=== PATIENT | male | born 1930 | race Caucasian/White ===

== ENCOUNTER 2017-07-05 06:13 | Inpatient (IN) ==
[2017-07-05] MEDS ORDERED: SODIUM CHLORIDE 0.9% 1,000 ML IV STA ×2 (06:35→09:44)
[2017-07-05] MEDS ORDERED: PANTOPRAZOLE 40 MG VIAL IV STA (06:35)
[2017-07-05] MEDS ORDERED: ONDANSETRON 4 MG/2 ML VIAL IV STA (06:35)
[2017-07-05] MEDS ORDERED: SODIUM CHLORIDE 0.9% 500 ML IV STA (06:35)
[2017-07-05] MEDS ORDERED: ONDANSETRON 4 MG/2 ML VIAL ONE (07:06)
[2017-07-05] MEDS ORDERED: PANTOPRAZOLE 40 MG VIAL IV ONE ×2 (07:07→07:20)
[2017-07-05 07:18] LABS: Apearance,Urine CLOUDY (Clear); Basophils % 0.2 % (0.0-0.8); Bilirubin,Urine Negative (Negative); Blood, Urine Small mg/dL (Negative); Glucose,Urine (UA) Negative (Negative); Hematocrit 36.6 VOL% (42.0-52.0); Immature Granulocytes % 0.5 %; Immature Granulocytes Absolute 0.12 #; Ketones,Urine Negative (Negative); Lymphocytes # 0.4 10*3/uL (1.4-4.0); Lymphocytes % 1.7 % (21.2-54.2); Mean Corpuscular HGB Conc 30.1 GM/DL (32-36); Mean Corpuscular Hemoglobin 24 PG (27-34); Mean Corpuscular Volume 81.3 FL (87-102); Monocytes # 1.9 10*3/uL (0.11-0.8); Monocytes % 8.6 % (1.7-12.7); Nitrite,Urine Positive (Negative); Platelet Count 352 T/CUMM (130-400); Protein,Urine 30 MG/DL; RBC,Urine 14 /HPF (0-4); Red Cell Distribution Width 17.1 % (9.3-17.3); Squamous Epithelial Cell,Urine Occasional /HPF (0-10); Urine Color Yellow (Yellow); Urine Specific Gravity 1.017 (1.001-1.035); Urine Urobilinogen < 2.0 EU/DL (0.2-1.0); WBC,Urine 658 /HPF (0-6); White Blood Count 22.5 T/CUMM (4-12)
[2017-07-05 07:28] LABS: Albumin 3.3 G/DL (3.4-5.0); Bilirubin,Total 0.6 MG/DL (0.2-1.0); Calcium 8.7 MG/DL (8.5-10.1); Osmolality,Calculated 280.8 MOS/KG (273-304); Potassium 3.8 MMOL/L (3.5-5.1); Total Protein 7.6 G/DL (6.4-8.3)
[2017-07-05 07:43] LABS: Giant Platelets Few; Hypochromasia 1+; Lymphocytes 2 % (20-55); Ovalocytes Slight; Platelet Estimate Adequate; Segmented Neutrophils 91 % (50-85); Total Cells Counted 100
[2017-07-05 10:04] LABS: Risk Ratio 1.98; VLDL CHOLESTEROL 10.8 MG/DL
[2017-07-05] MEDS ORDERED: SODIUM CHLORIDE 0.9% 2,450 ML IV ONE ×2 (13:05→13:07)
[2017-07-05 13:52] LABS: ABG HCO3 25.2 MMOL/L (20-26); ABG PCO2 40.8 MM HG (35-48); ABG PH 7.408 (7.35-7.45); ABG PO2 63.6 MM HG (80-95); ABG TCO2 23.5 MMOL/L (23-27)
[2017-07-05 14:08] LABS: Bilirubin,Direct 0.2 MG/DL (0.0-0.20); Bilirubin,Total 0.5 MG/DL (0.2-1.0)
[2017-07-05] MEDS ORDERED: LEVOFLOXACIN INJ 100 ML IV ONE (14:17)
[2017-07-05] MEDS: SODIUM CHLORIDE 0.9% 1,000 ML IV SCH (14:32)
[2017-07-05] MEDS: LEVOFLOXACIN INJ 500 MG in PREMIX 1 EACH IV SCH (14:35)
[2017-07-05] MEDS: ACETAMINOPHEN 650 MG SUPP RECTAL PRN (15:42)
[2017-07-05] MEDS: PANTOPRAZOLE INJ 200 MG in SODIUM CHLORIDE 0.9% 250 ML IV SCH (20:46)
[2017-07-06] MEDS: SODIUM CHLORIDE 0.9% 1,000 ML IV SCH ×2 (01:15→11:31)
[2017-07-06 06:24] LABS: Basophils # 0.1 10*3/uL (0.0-0.2); Basophils % 0.2 % (0.0-0.8); Hematocrit 29.8 VOL% (42.0-52.0); Hemoglobin 8.7 GM/DL (14.0-18.0); Immature Granulocytes % 0.7 %; Immature Granulocytes Absolute 0.15 #; Lymphocytes # 0.6 10*3/uL (1.4-4.0); Lymphocytes % 2.8 % (21.2-54.2); Mean Corpuscular HGB Conc 29.2 GM/DL (32-36); Mean Corpuscular Hemoglobin 24 PG (27-34); Mean Platelet Volume 10.5 FL (9.6-12.0); Monocytes # 2.2 10*3/uL (0.11-0.8); Monocytes % 10.4 % (1.7-12.7); Neutrophils # 18.5 10*3/uL (1.4-7.4); Neutrophils % 85.9 % (38.7-73.9); Platelet Count 286 T/CUMM (130-400); Red Blood Count 3.59 MC/CUMM (3.8-5.5); Red Cell Distribution Width 17.1 % (9.3-17.3); White Blood Count 21.5 T/CUMM (4-12)
[2017-07-06 06:48] LABS: Band Neutrophils 2 % (0-10); Lymphocytes 2 % (20-55); Macrocytosis 1+; Platelet Estimate Adequate; Polychromasia Slight; Segmented Neutrophils 86 % (50-85); Spherocytes Few; Total Cells Counted 100
[2017-07-06 06:54] LABS: Albumin 2.6 G/DL (3.4-5.0); Bilirubin,Direct 0.26 MG/DL (0.0-0.20); Bilirubin,Indirect 0.4 MG/DL (0.0-1.0); Bilirubin,Total 0.7 MG/DL (0.2-1.0); Total Protein 5.6 G/DL (6.4-8.3)
[2017-07-06 07:02] LABS: Albumin 2.6 G/DL (3.4-5.0); Bilirubin,Total 0.7 MG/DL (0.2-1.0); Calcium 8.2 MG/DL (8.5-10.1); Osmolality,Calculated 282.3 MOS/KG (273-304); Total Protein 5.6 G/DL (6.4-8.3)
[2017-07-06] MEDS ORDERED: ALBUTEROL/IPRATROPIUM 3 ML NEB RESP TX PRN (10:58)
[2017-07-06] MEDS: methylPREDNISolone SOD SUC 40 MG/1 ML VIAL IV SCH ×2 (11:26→22:12)
[2017-07-06] MEDS: ACETAMINOPHEN 650 MG SUPP RECTAL PRN (12:17)
[2017-07-06] MEDS: LEVOFLOXACIN INJ 500 MG in PREMIX 1 EACH IV SCH (13:19)
[2017-07-06] MEDS: PANTOPRAZOLE INJ 200 MG in SODIUM CHLORIDE 0.9% 250 ML IV SCH (21:08)
[2017-07-07] MEDS: SODIUM CHLORIDE 0.9% 1,000 ML IV SCH ×2 (01:16→11:44)
[2017-07-07] MEDS ORDERED: FUROSEMIDE 40 MG/4 ML VIAL IV ONE (08:28)
[2017-07-07 09:02] LABS: Basophils % 0.1 % (0.0-0.8); Hematocrit 30.5 VOL% (42.0-52.0); Hemoglobin 8.9 GM/DL (14.0-18.0); Immature Granulocytes % 0.8 %; Immature Granulocytes Absolute 0.11 #; Lymphocytes # 0.3 10*3/uL (1.4-4.0); Lymphocytes % 2.4 % (21.2-54.2); Mean Corpuscular HGB Conc 29.2 GM/DL (32-36); Mean Corpuscular Hemoglobin 24 PG (27-34); Mean Corpuscular Volume 81.3 FL (87-102); Monocytes # 0.6 10*3/uL (0.11-0.8); Monocytes % 4.4 % (1.7-12.7); Neutrophils # 12.5 10*3/uL (1.4-7.4); Neutrophils % 92.3 % (38.7-73.9); Platelet Count 327 T/CUMM (130-400); Red Blood Count 3.75 MC/CUMM (3.8-5.5); Red Cell Distribution Width 16.8 % (9.3-17.3); White Blood Count 13.5 T/CUMM (4-12)
[2017-07-07 09:22] LABS: Alanine Aminotransferase 51 U/L (16-61); Albumin 2.5 G/DL (3.4-5.0); Alkaline Phosphatase 60 U/L (45-117); Aspartate Amino Transferase 29 U/L (0-37); Bilirubin,Total < 0.39 MG/DL (0.2-1.0); Blood Urea Nitrogen 27 MG/DL (7-18); Calcium 8.9 MG/DL (8.5-10.1); Glucose 128 MG/DL (74-106); Osmolality,Calculated 289.1 MOS/KG (273-304); Potassium 4.2 MMOL/L (3.5-5.1); Sodium 142 MMOL/L (136-145); Total Protein 5.8 G/DL (6.4-8.3)
[2017-07-07 09:24] LABS: Band Neutrophils 1 % (0-10); Hypochromasia 1+; Lymphocytes 4 % (20-55); Segmented Neutrophils 91 % (50-85); Total Cells Counted 100
[2017-07-07 09:25] LABS: Burr Cells Slight; Microcytosis 1+; Ovalocytes Few; Platelet Estimate Normal
[2017-07-07] MEDS: methylPREDNISolone SOD SUC 40 MG/1 ML VIAL IV SCH ×2 (11:41→22:45)
[2017-07-07] MEDS: LEVOFLOXACIN INJ 500 MG in PREMIX 1 EACH IV SCH (13:50)
[2017-07-08 05:49] LABS: Basophils % 0.1 % (0.0-0.8); Hematocrit 29.5 VOL% (42.0-52.0); Hemoglobin 8.9 GM/DL (14.0-18.0); Immature Granulocytes % 1.8 %; Immature Granulocytes Absolute 0.25 #; Lymphocytes # 0.4 10*3/uL (1.4-4.0); Lymphocytes % 2.6 % (21.2-54.2); Mean Corpuscular HGB Conc 30.2 GM/DL (32-36); Mean Corpuscular Hemoglobin 24 PG (27-34); Mean Corpuscular Volume 79.9 FL (87-102); Monocytes # 0.5 10*3/uL (0.11-0.8); Monocytes % 3.7 % (1.7-12.7); Neutrophils # 12.6 10*3/uL (1.4-7.4); Neutrophils % 91.8 % (38.7-73.9); Platelet Count 348 T/CUMM (130-400); Red Blood Count 3.69 MC/CUMM (3.8-5.5); Red Cell Distribution Width 16.9 % (9.3-17.3); White Blood Count 13.7 T/CUMM (4-12)
[2017-07-08 06:18] LABS: Calcium 8.3 MG/DL (8.5-10.1); Osmolality,Calculated 289.3 MOS/KG (273-304); Potassium 4.2 MMOL/L (3.5-5.1)
[2017-07-08 06:29] LABS: Lymphocytes 1 % (20-55); Segmented Neutrophils 97 % (50-85); Total Cells Counted 100
[2017-07-08 06:30] LABS: Burr Cells Slight; Elliptocytes Few; Hypochromasia 1+; Microcytosis 1+; Platelet Estimate Normal
[2017-07-08] MEDS: PANTOPRAZOLE 40 MG VIAL IV SCH (12:18)
[2017-07-08] MEDS: methylPREDNISolone SOD SUC 40 MG/1 ML VIAL IV SCH ×2 (12:20→23:38)
[2017-07-08] MEDS: LEVOFLOXACIN INJ 500 MG in PREMIX 1 EACH IV SCH (13:50)
[2017-07-09 05:25] LABS: Basophils % 0.1 % (0.0-0.8); Hematocrit 32.3 VOL% (42.0-52.0); Immature Granulocytes % 1.2 %; Immature Granulocytes Absolute 0.17 #; Lymphocytes # 0.4 10*3/uL (1.4-4.0); Lymphocytes % 2.6 % (21.2-54.2); Mean Corpuscular Hemoglobin 24 PG (27-34); Mean Corpuscular Volume 77.8 FL (87-102); Mean Platelet Volume 11.2 FL (9.6-12.0); Monocytes # 0.5 10*3/uL (0.11-0.8); Monocytes % 3.6 % (1.7-12.7); Neutrophils % 92.5 % (38.7-73.9); Platelet Count 421 T/CUMM (130-400); Red Blood Count 4.15 MC/CUMM (3.8-5.5); Red Cell Distribution Width 16.9 % (9.3-17.3)
[2017-07-09 05:57] LABS: Albumin 2.7 G/DL (3.4-5.0); Bilirubin,Total 0.5 MG/DL (0.2-1.0); Calcium 8.8 MG/DL (8.5-10.1); Osmolality,Calculated 282.7 MOS/KG (273-304); Potassium 4.4 MMOL/L (3.5-5.1); Total Protein 5.9 G/DL (6.4-8.3)
[2017-07-09 05:59] LABS: Band Neutrophils 1 % (0-10); Giant Platelets Few; Hypochromasia 1+; Lymphocytes 1 % (20-55); Microcytosis Slight; Nucleated Red Blood Cells 1 (0-5); Platelet Estimate Adequate; Segmented Neutrophils 94 % (50-85); Total Cells Counted 100
[2017-07-09] MEDS: LEVOFLOXACIN INJ 500 MG in PREMIX 1 EACH IV SCH (09:08)
[2017-07-09] MEDS: PANTOPRAZOLE 40 MG VIAL IV SCH (09:22)
[2017-07-09] MEDS: methylPREDNISolone SOD SUC 40 MG/1 ML VIAL IV SCH ×2 (09:25→21:58)
[2017-07-09] MEDS ORDERED: SODIUM PHOSPHATE INJ 15 MMOL in SODIUM CHLORIDE 0.9% 250 ML IV ONE (10:00)
[2017-07-10 05:59] LABS: Basophils % 0.2 % (0.0-0.8); Hematocrit 32.1 VOL% (42.0-52.0); Hemoglobin 9.9 GM/DL (14.0-18.0); Immature Granulocytes % 4.1 %; Immature Granulocytes Absolute 0.55 #; Lymphocytes # 0.7 10*3/uL (1.4-4.0); Lymphocytes % 5.2 % (21.2-54.2); Mean Corpuscular HGB Conc 30.8 GM/DL (32-36); Mean Corpuscular Hemoglobin 24 PG (27-34); Mean Corpuscular Volume 77.5 FL (87-102); Mean Platelet Volume 10.7 FL (9.6-12.0); Monocytes % 7.4 % (1.7-12.7); Neutrophils % 83.1 % (38.7-73.9); Platelet Count 413 T/CUMM (130-400); Red Blood Count 4.14 MC/CUMM (3.8-5.5); Red Cell Distribution Width 16.8 % (9.3-17.3); White Blood Count 13.3 T/CUMM (4-12)
[2017-07-10 06:19] LABS: Hypochromasia 2+; Lymphocytes 4 % (20-55); Platelet Estimate Increased; Polychromasia Slight; Segmented Neutrophils 94 % (50-85); Total Cells Counted 100
[2017-07-10 06:34] LABS: Albumin 2.5 G/DL (3.4-5.0); Bilirubin,Total 0.9 MG/DL (0.2-1.0); Calcium 8.6 MG/DL (8.5-10.1); Osmolality,Calculated 284.4 MOS/KG (273-304); Potassium 4.6 MMOL/L (3.5-5.1); Total Protein 5.5 G/DL (6.4-8.3)
[2017-07-10] MEDS: LEVOFLOXACIN INJ 500 MG in PREMIX 1 EACH IV SCH (09:28)
[2017-07-10] MEDS: PANTOPRAZOLE 40 MG VIAL IV SCH (10:39)
[2017-07-10] MEDS: methylPREDNISolone SOD SUC 40 MG/1 ML VIAL IV SCH ×2 (10:39→20:55)
[2017-07-11 06:29] LABS: Basophils # 0.1 10*3/uL (0.0-0.2); Basophils % 0.3 % (0.0-0.8); Hematocrit 33.5 VOL% (42.0-52.0); Hemoglobin 10.2 GM/DL (14.0-18.0); Immature Granulocytes Absolute 0.83 #; Lymphocytes # 0.8 10*3/uL (1.4-4.0); Mean Corpuscular HGB Conc 30.4 GM/DL (32-36); Mean Corpuscular Hemoglobin 24 PG (27-34); Mean Corpuscular Volume 79.2 FL (87-102); Mean Platelet Volume 10.4 FL (9.6-12.0); Neutrophils % 83.7 % (38.7-73.9); Platelet Count 467 T/CUMM (130-400); Red Blood Count 4.23 MC/CUMM (3.8-5.5); White Blood Count 16.7 T/CUMM (4-12)
[2017-07-11 06:52] LABS: Band Neutrophils 1 % (0-10); Burr Cells Slight; Giant Platelets Few; Hypochromasia 1+; Lymphocytes 7 % (20-55); Microcytosis Slight; Ovalocytes Slight; Platelet Estimate Adequate; Segmented Neutrophils 85 % (50-85); Total Cells Counted 100
[2017-07-11 07:04] LABS: Calcium 8.6 MG/DL (8.5-10.1); Osmolality,Calculated 287.3 MOS/KG (273-304); Potassium 4.7 MMOL/L (3.5-5.1)
[2017-07-11] MEDS: methylPREDNISolone SOD SUC 40 MG/1 ML VIAL IV SCH (09:24)
[2017-07-11] MEDS: PANTOPRAZOLE 40 MG VIAL IV SCH (09:24)
[2017-07-11] MEDS: LEVOFLOXACIN INJ 500 MG in PREMIX 1 EACH IV SCH (09:25)
[2017-07-12 05:19] LABS: Basophils # 0.1 10*3/uL (0.0-0.2); Basophils % 0.4 % (0.0-0.8); Eosinophils # 0.1 10*3/uL (0.0-0.87); Eosinophils % 0.4 % (0.00-10.9); Hematocrit 31.5 VOL% (42.0-52.0); Hemoglobin 9.7 GM/DL (14.0-18.0); Immature Granulocytes Absolute 1.11 #; Lymphocytes # 1.5 10*3/uL (1.4-4.0); Lymphocytes % 8.2 % (21.2-54.2); Mean Corpuscular HGB Conc 30.8 GM/DL (32-36); Mean Corpuscular Hemoglobin 24 PG (27-34); Mean Corpuscular Volume 78.2 FL (87-102); Mean Platelet Volume 10.3 FL (9.6-12.0); Monocytes # 1.4 10*3/uL (0.11-0.8); Monocytes % 7.6 % (1.7-12.7); NRBC # 0.02 10*3/uL; Neutrophils # 14.4 10*3/uL (1.4-7.4); Neutrophils % 77.4 % (38.7-73.9); Platelet Count 467 T/CUMM (130-400); Red Blood Count 4.03 MC/CUMM (3.8-5.5); Red Cell Distribution Width 16.9 % (9.3-17.3); White Blood Count 18.6 T/CUMM (4-12)
[2017-07-12 05:51] LABS: Eosinophils 3 % (0-10); Hypochromasia 1+; Lymphocytes 9 % (20-55); Metamyelocytes 1 %; Microcytosis 1+; Segmented Neutrophils 80 % (50-85); Total Cells Counted 100
[2017-07-12 05:52] LABS: Ovalocytes Slight; Platelet Estimate Increased
[2017-07-12 05:56] LABS: Albumin 2.5 G/DL (3.4-5.0); Bilirubin,Total 0.7 MG/DL (0.2-1.0); Calcium 8.3 MG/DL (8.5-10.1); Osmolality,Calculated 279.7 MOS/KG (273-304); Potassium 4.1 MMOL/L (3.5-5.1); Total Protein 5.2 G/DL (6.4-8.3)
[2017-07-12] MEDS ORDERED: PANTOPRAZOLE 40 MG TABLET PO SCH (09:00)
[2017-07-12] MEDS ORDERED: predniSONE 20 MG TABLET PO SCH (09:00)
[2017-07-12 11:41] VITALS: BP 104/52
== END 2017-07-12 14:49 | DRG 871 ==
LOC: EDBD → EDUNIT# → N.ED 06:13 → SUATTDRO 12:34 → N.EDINP 12:34 → N.2E 15:20
PROVIDERS: ADMIT Internal Medicine; ATTEND Internal Medicine

== ENCOUNTER 2018-06-27 08:39 | Inpatient (IN) ==
[2018-06-27 09:36] LABS: Basophils # 0.1 10*3/uL (0.0-0.2); Basophils % 0.8 % (0.0-0.8); Eosinophils # 0.6 10*3/uL (0.0-0.87); Hematocrit 35.4 VOL% (42.0-52.0); Hemoglobin 10.8 GM/DL (14.0-18.0); Immature Granulocytes % 0.8 %; Lymphocytes # 0.9 10*3/uL (1.4-4.0); Lymphocytes % 7.4 % (21.2-54.2); Mean Corpuscular HGB Conc 30.5 GM/DL (32-36); Mean Corpuscular Hemoglobin 28 PG (27-34); Mean Corpuscular Volume 90.5 FL (87-102); Mean Platelet Volume 10.2 FL (9.6-12.0); Monocytes # 1.3 10*3/uL (0.11-0.8); Monocytes % 11.2 % (1.7-12.7); Neutrophils # 8.9 10*3/uL (1.4-7.4); Neutrophils % 74.8 % (38.7-73.9); Platelet Count 290 T/CUMM (130-400); Red Blood Count 3.91 MC/CUMM (3.8-5.5); Red Cell Distribution Width 17.6 % (9.3-17.3); White Blood Count 11.9 T/CUMM (4-12)
[2018-06-27 09:57] LABS: Calcium 8.7 MG/DL (8.5-10.1); Osmolality,Calculated 279.5 MOS/KG (273-304); Potassium 4.6 MMOL/L (3.5-5.1)
[2018-06-27 10:04] LABS: Apearance,Urine Turbid (Clear); Glucose,Urine (UA) Negative (Negative); Ketones,Urine Negative (Negative); Protein,Urine 3+ MG/DL; Urine Color Red (Yellow); Urine Specific Gravity 1.015 (1.001-1.035)
[2018-06-27 10:05] LABS: Bilirubin,Urine Negative (Negative); Blood, Urine Large mg/dL (Negative); Nitrite,Urine Negative (Negative); RBC,Urine TNTC /HPF (0-4); Urine Urobilinogen < 2.0 EU/DL (0.2-1.0)
[2018-06-27 10:14] LABS: WBC,Urine Rare /HPF (0-6)
[2018-06-27 10:15] LABS: Bacteria,Urine Few /HPF (Few)
[2018-06-27] MEDS ORDERED: LEVOFLOXACIN INJ 500 MG in PREMIX 1 EACH IV STA (10:16)
[2018-06-27] MEDS ORDERED: DOCUSATE SODIUM 100 MG CAPSULE PO PRN (11:08)
[2018-06-27] MEDS ORDERED: ONDANSETRON 4 MG/2 ML VIAL IV PRN (11:08)
[2018-06-27] MEDS: ALBUTEROL 0.63 MG/3 ML NEB RESP TX PRN (12:02)
[2018-06-27] MEDS: DEXTROSE 5% NACL 0.45% 1,000 ML IV SCH (14:43)
[2018-06-27 16:25] LABS: Hematocrit 34.5 VOL% (42.0-52.0); Hemoglobin 10.5 GM/DL (14.0-18.0)
[2018-06-27] MEDS: FLUTICASONE 50 MCG NASAL SPRAY 16 GM BOTTLE BOTH NARES SCH (18:52)
[2018-06-27] MEDS ORDERED: SPIRONOLACTONE 25 MG TABLET PO SCH (21:00)
[2018-06-27] MEDS: SPIRONOLACTONE 25 MG TABLET PO SCH (22:16)
[2018-06-27] MEDS: DOCUSATE SODIUM 100 MG CAPSULE PO SCH (22:16)
[2018-06-27] MEDS: ATORVASTATIN 40 MG TABLET PO SCH (22:16)
[2018-06-27 22:26] LABS: Hematocrit 33.7 VOL% (42.0-52.0); Hemoglobin 10.3 GM/DL (14.0-18.0)
[2018-06-28] MEDS: DEXTROSE 5% NACL 0.45% 1,000 ML IV SCH ×2 (04:17→18:38)
[2018-06-28 06:37] LABS: Hematocrit 33.8 VOL% (42.0-52.0); Hemoglobin 10.2 GM/DL (14.0-18.0)
[2018-06-28 06:38] LABS: Basophils # 0.1 10*3/uL (0.0-0.2); Basophils % 0.7 % (0.0-0.8); Eosinophils # 0.5 10*3/uL (0.0-0.87); Eosinophils % 4.9 % (0.00-10.9); Hematocrit 34.4 VOL% (42.0-52.0); Hemoglobin 10.4 GM/DL (14.0-18.0); Lymphocytes # 0.8 10*3/uL (1.4-4.0); Lymphocytes % 7.9 % (21.2-54.2); Mean Corpuscular HGB Conc 30.2 GM/DL (32-36); Mean Corpuscular Hemoglobin 28 PG (27-34); Mean Corpuscular Volume 91.5 FL (87-102); Mean Platelet Volume 10.6 FL (9.6-12.0); Monocytes # 1.2 10*3/uL (0.11-0.8); Monocytes % 12.6 % (1.7-12.7); Neutrophils # 7.1 10*3/uL (1.4-7.4); Neutrophils % 72.9 % (38.7-73.9); Platelet Count 279 T/CUMM (130-400); Red Blood Count 3.76 MC/CUMM (3.8-5.5); Red Cell Distribution Width 17.3 % (9.3-17.3); White Blood Count 9.8 T/CUMM (4-12)
[2018-06-28 06:58] LABS: Calcium 8.6 MG/DL (8.5-10.1); Potassium 4.3 MMOL/L (3.5-5.1); Risk Ratio 2.66; VLDL CHOLESTEROL 25.8 MG/DL
[2018-06-28] MEDS: FLUTICASONE 50 MCG NASAL SPRAY 16 GM BOTTLE BOTH NARES SCH (08:59)
[2018-06-28] MEDS ORDERED: NON-FORMULARY MEDICATION (Omeprazole [Omeprazole] 20 MG) PO SCH (09:00)
[2018-06-28] MEDS ORDERED: NON-FORMULARY MEDICATION (Bumetanide [Bumetanide] 0.5 MG) PO SCH (09:00)
[2018-06-28] MEDS: CYANOCOBALAMIN 500 MCG TABLET PO SCH (09:03)
[2018-06-28] MEDS: PANTOPRAZOLE 40 MG TABLET PO SCH (09:03)
[2018-06-28] MEDS: FUROSEMIDE 20 MG TABLET PO SCH (09:03)
[2018-06-28] MEDS: FENOFIBRATE 160 MG TABLET PO SCH (09:03)
[2018-06-28] MEDS: ESCITALOPRAM 10 MG TABLET PO SCH (09:03)
[2018-06-28] MEDS: DOCUSATE SODIUM 100 MG CAPSULE PO SCH ×2 (09:03→20:40)
[2018-06-28] MEDS: DUTASTERIDE 0.5 MG CAPSULE PO SCH (09:03)
[2018-06-28] MEDS: POTASSIUM CHLORIDE 20 MEQ TABLET PO SCH (09:03)
[2018-06-28] MEDS: MEMANTINE 10 MG TABLET PO SCH (09:03)
[2018-06-28] MEDS: LORATADINE 10 MG TABLET PO PRN (09:04)
[2018-06-28] MEDS: MULTIVITAMIN (CENTRUM) TABLET PO SCH (09:04)
[2018-06-28] MEDS: SPIRONOLACTONE 25 MG TABLET PO SCH ×2 (09:04→20:40)
[2018-06-28] MEDS: LEVOFLOXACIN INJ 500 MG in PREMIX 1 EACH IV SCH (11:35)
[2018-06-28 14:16] LABS: Hematocrit 33.4 VOL% (42.0-52.0); Hemoglobin 9.9 GM/DL (14.0-18.0)
[2018-06-28] MEDS: ATORVASTATIN 40 MG TABLET PO SCH (20:40)
[2018-06-28 22:03] LABS: Hematocrit 32.9 VOL% (42.0-52.0); Hemoglobin 10.1 GM/DL (14.0-18.0)
[2018-06-29] MEDS: DEXTROSE 5% NACL 0.45% 1,000 ML IV SCH (08:12)
[2018-06-29] MEDS: CYANOCOBALAMIN 500 MCG TABLET PO SCH (09:22)
[2018-06-29] MEDS: DUTASTERIDE 0.5 MG CAPSULE PO SCH (09:22)
[2018-06-29] MEDS: FENOFIBRATE 160 MG TABLET PO SCH (09:22)
[2018-06-29] MEDS: SPIRONOLACTONE 25 MG TABLET PO SCH ×2 (09:23→20:57)
[2018-06-29] MEDS: DOCUSATE SODIUM 100 MG CAPSULE PO SCH ×2 (09:23→20:57)
[2018-06-29] MEDS: POTASSIUM CHLORIDE 20 MEQ TABLET PO SCH (09:23)
[2018-06-29] MEDS: FUROSEMIDE 20 MG TABLET PO SCH (09:23)
[2018-06-29] MEDS: PANTOPRAZOLE 40 MG TABLET PO SCH (09:23)
[2018-06-29] MEDS: ESCITALOPRAM 10 MG TABLET PO SCH (09:23)
[2018-06-29] MEDS: MEMANTINE 10 MG TABLET PO SCH (09:23)
[2018-06-29] MEDS: MULTIVITAMIN (CENTRUM) TABLET PO SCH (09:23)
[2018-06-29] MEDS: FLUTICASONE 50 MCG NASAL SPRAY 16 GM BOTTLE BOTH NARES SCH (09:24)
[2018-06-29] MEDS: LEVOFLOXACIN INJ 500 MG in PREMIX 1 EACH IV SCH (10:49)
[2018-06-29] MEDS ORDERED: VANCOMYCIN INJ 1,250 MG in SODIUM CHLORIDE 0.9% 250 ML IV SCH (16:00)
[2018-06-29] MEDS: cefTRIAXone 1,000 MG in SYRINGE 1 EACH IV SCH (20:57)
[2018-06-29] MEDS: ATORVASTATIN 40 MG TABLET PO SCH (20:57)
[2018-06-30] MEDS: DEXTROSE 5% NACL 0.45% 1,000 ML IV SCH (00:31)
[2018-06-30 04:58] LABS: Basophils # 0.1 10*3/uL (0.0-0.2); Basophils % 0.6 % (0.0-0.8); Eosinophils # 0.5 10*3/uL (0.0-0.87); Eosinophils % 4.2 % (0.00-10.9); Hematocrit 30.5 VOL% (42.0-52.0); Hemoglobin 9.3 GM/DL (14.0-18.0); Immature Granulocytes % 0.7 %; Immature Granulocytes Absolute 0.08 #; Lymphocytes % 9.3 % (21.2-54.2); Mean Corpuscular HGB Conc 30.5 GM/DL (32-36); Mean Corpuscular Hemoglobin 27 PG (27-34); Mean Platelet Volume 11.1 FL (9.6-12.0); Monocytes # 1.5 10*3/uL (0.11-0.8); Neutrophils # 7.7 10*3/uL (1.4-7.4); Neutrophils % 71.2 % (38.7-73.9); Platelet Count 269 T/CUMM (130-400); Red Blood Count 3.39 MC/CUMM (3.8-5.5); Red Cell Distribution Width 16.8 % (9.3-17.3); White Blood Count 10.8 T/CUMM (4-12)
[2018-06-30 05:30] LABS: Calcium 8.3 MG/DL (8.5-10.1); Osmolality,Calculated 276.7 MOS/KG (273-304); Potassium 4.2 MMOL/L (3.5-5.1)
[2018-06-30] MEDS: SPIRONOLACTONE 25 MG TABLET PO SCH ×2 (09:30→21:25)
[2018-06-30] MEDS: FENOFIBRATE 160 MG TABLET PO SCH (09:30)
[2018-06-30] MEDS: PANTOPRAZOLE 40 MG TABLET PO SCH (09:30)
[2018-06-30] MEDS: FUROSEMIDE 20 MG TABLET PO SCH (09:30)
[2018-06-30] MEDS: DUTASTERIDE 0.5 MG CAPSULE PO SCH (09:30)
[2018-06-30] MEDS: MEMANTINE 10 MG TABLET PO SCH (09:30)
[2018-06-30] MEDS: LORATADINE 10 MG TABLET PO PRN (09:30)
[2018-06-30] MEDS: CYANOCOBALAMIN 500 MCG TABLET PO SCH (09:30)
[2018-06-30] MEDS: FLUTICASONE 50 MCG NASAL SPRAY 16 GM BOTTLE BOTH NARES SCH (09:31)
[2018-06-30] MEDS: DOCUSATE SODIUM 100 MG CAPSULE PO SCH ×2 (09:31→21:25)
[2018-06-30] MEDS: MULTIVITAMIN (CENTRUM) TABLET PO SCH (09:31)
[2018-06-30] MEDS: ESCITALOPRAM 10 MG TABLET PO SCH (09:31)
[2018-06-30] MEDS: POTASSIUM CHLORIDE 20 MEQ TABLET PO SCH (09:31)
[2018-06-30] MEDS: cefTRIAXone 1,000 MG in SYRINGE 1 EACH IV SCH (21:25)
[2018-06-30] MEDS: ATORVASTATIN 40 MG TABLET PO SCH (21:25)
[2018-07-01] MEDS: DEXTROSE 5% NACL 0.45% 1,000 ML IV SCH ×3 (03:56→16:40)
[2018-07-01 05:23] LABS: Basophils # 0.1 10*3/uL (0.0-0.2); Basophils % 0.7 % (0.0-0.8); Eosinophils # 0.7 10*3/uL (0.0-0.87); Eosinophils % 6.4 % (0.00-10.9); Hematocrit 30.6 VOL% (42.0-52.0); Hemoglobin 9.5 GM/DL (14.0-18.0); Immature Granulocytes % 0.8 %; Immature Granulocytes Absolute 0.08 #; Lymphocytes # 1.1 10*3/uL (1.4-4.0); Lymphocytes % 10.6 % (21.2-54.2); Mean Corpuscular Hemoglobin 29 PG (27-34); Mean Corpuscular Volume 92.2 FL (87-102); Monocytes # 1.4 10*3/uL (0.11-0.8); Monocytes % 13.9 % (1.7-12.7); Neutrophils # 6.9 10*3/uL (1.4-7.4); Neutrophils % 67.6 % (38.7-73.9); Platelet Count 278 T/CUMM (130-400); Red Blood Count 3.32 MC/CUMM (3.8-5.5); Red Cell Distribution Width 16.9 % (9.3-17.3); White Blood Count 10.3 T/CUMM (4-12)
[2018-07-01 05:44] LABS: Calcium 8.7 MG/DL (8.5-10.1); Osmolality,Calculated 275.7 MOS/KG (273-304); Potassium 4.1 MMOL/L (3.5-5.1)
[2018-07-01] MEDS: FUROSEMIDE 20 MG TABLET PO SCH (09:23)
[2018-07-01] MEDS: DOCUSATE SODIUM 100 MG CAPSULE PO SCH ×2 (09:23→22:32)
[2018-07-01] MEDS: MEMANTINE 10 MG TABLET PO SCH (09:23)
[2018-07-01] MEDS: DUTASTERIDE 0.5 MG CAPSULE PO SCH (09:23)
[2018-07-01] MEDS: SPIRONOLACTONE 25 MG TABLET PO SCH ×2 (09:23→22:32)
[2018-07-01] MEDS: FENOFIBRATE 160 MG TABLET PO SCH (09:23)
[2018-07-01] MEDS: ESCITALOPRAM 10 MG TABLET PO SCH (09:23)
[2018-07-01] MEDS: CYANOCOBALAMIN 500 MCG TABLET PO SCH (09:23)
[2018-07-01] MEDS: MULTIVITAMIN (CENTRUM) TABLET PO SCH (09:23)
[2018-07-01] MEDS: POTASSIUM CHLORIDE 20 MEQ TABLET PO SCH (09:23)
[2018-07-01] MEDS: FLUTICASONE 50 MCG NASAL SPRAY 16 GM BOTTLE BOTH NARES SCH (09:24)
[2018-07-01] MEDS: PANTOPRAZOLE 40 MG TABLET PO SCH (09:24)
[2018-07-01] MEDS: cefTRIAXone 1,000 MG in SYRINGE 1 EACH IV SCH (18:39)
[2018-07-01] MEDS: ATORVASTATIN 40 MG TABLET PO SCH (22:33)
[2018-07-02 05:22] LABS: Basophils # 0.1 10*3/uL (0.0-0.2); Basophils % 0.6 % (0.0-0.8); Eosinophils # 0.8 10*3/uL (0.0-0.87); Eosinophils % 7.1 % (0.00-10.9); Hematocrit 29.9 VOL% (42.0-52.0); Hemoglobin 8.8 GM/DL (14.0-18.0); Immature Granulocytes % 1.1 %; Immature Granulocytes Absolute 0.12 #; Lymphocytes # 0.9 10*3/uL (1.4-4.0); Lymphocytes % 8.3 % (21.2-54.2); Mean Corpuscular HGB Conc 29.4 GM/DL (32-36); Mean Corpuscular Hemoglobin 27 PG (27-34); Mean Platelet Volume 10.7 FL (9.6-12.0); Monocytes # 1.4 10*3/uL (0.11-0.8); Monocytes % 12.4 % (1.7-12.7); Neutrophils % 70.5 % (38.7-73.9); Platelet Count 279 T/CUMM (130-400); Red Blood Count 3.25 MC/CUMM (3.8-5.5); Red Cell Distribution Width 16.8 % (9.3-17.3); White Blood Count 11.3 T/CUMM (4-12)
[2018-07-02] MEDS: DEXTROSE 5% NACL 0.45% 1,000 ML IV SCH ×2 (05:32→17:59)
[2018-07-02] MEDS: FUROSEMIDE 20 MG TABLET PO SCH (08:56)
[2018-07-02] MEDS: MULTIVITAMIN (CENTRUM) TABLET PO SCH (08:56)
[2018-07-02] MEDS: FENOFIBRATE 160 MG TABLET PO SCH (08:56)
[2018-07-02] MEDS: MEMANTINE 10 MG TABLET PO SCH (08:56)
[2018-07-02] MEDS: DUTASTERIDE 0.5 MG CAPSULE PO SCH (08:56)
[2018-07-02] MEDS: ESCITALOPRAM 10 MG TABLET PO SCH (08:56)
[2018-07-02] MEDS: SPIRONOLACTONE 25 MG TABLET PO SCH ×2 (08:57→21:07)
[2018-07-02] MEDS: PANTOPRAZOLE 40 MG TABLET PO SCH (08:57)
[2018-07-02] MEDS: ACETAMINOPHEN 325 MG TABLET PO PRN (08:57)
[2018-07-02] MEDS: POTASSIUM CHLORIDE 20 MEQ TABLET PO SCH (08:57)
[2018-07-02] MEDS: CYANOCOBALAMIN 500 MCG TABLET PO SCH (08:57)
[2018-07-02] MEDS: DOCUSATE SODIUM 100 MG CAPSULE PO SCH ×2 (08:58→21:07)
[2018-07-02] MEDS: FLUTICASONE 50 MCG NASAL SPRAY 16 GM BOTTLE BOTH NARES SCH (08:58)
[2018-07-02] MEDS: cefTRIAXone 1,000 MG in SYRINGE 1 EACH IV SCH (18:00)
[2018-07-02] MEDS: ATORVASTATIN 40 MG TABLET PO SCH (21:07)
[2018-07-03] MEDS: DEXTROSE 5% NACL 0.45% 1,000 ML IV SCH ×2 (07:20→21:04)
[2018-07-03 07:45] LABS: Basophils # 0.1 10*3/uL (0.0-0.2); Basophils % 0.6 % (0.0-0.8); Eosinophils # 0.7 10*3/uL (0.0-0.87); Hematocrit 27.2 VOL% (42.0-52.0); Hemoglobin 8.5 GM/DL (14.0-18.0); Immature Granulocytes % 0.8 %; Immature Granulocytes Absolute 0.08 #; Lymphocytes # 0.8 10*3/uL (1.4-4.0); Lymphocytes % 7.7 % (21.2-54.2); Mean Corpuscular HGB Conc 31.3 GM/DL (32-36); Mean Corpuscular Hemoglobin 28 PG (27-34); Mean Corpuscular Volume 89.8 FL (87-102); Mean Platelet Volume 10.4 FL (9.6-12.0); Monocytes # 1.2 10*3/uL (0.11-0.8); Monocytes % 12.5 % (1.7-12.7); Neutrophils # 7.1 10*3/uL (1.4-7.4); Neutrophils % 71.4 % (38.7-73.9); Platelet Count 280 T/CUMM (130-400); Red Blood Count 3.03 MC/CUMM (3.8-5.5); Red Cell Distribution Width 16.9 % (9.3-17.3); White Blood Count 9.9 T/CUMM (4-12)
[2018-07-03 08:16] LABS: Albumin 2.8 G/DL (3.4-5.0); Bilirubin,Total 0.4 MG/DL (0.2-1.0); Calcium 8.3 MG/DL (8.5-10.1); Osmolality,Calculated 274.7 MOS/KG (273-304); Potassium 4.3 MMOL/L (3.5-5.1); Total Protein 6.3 G/DL (6.4-8.3)
[2018-07-03] MEDS: FLUTICASONE 50 MCG NASAL SPRAY 16 GM BOTTLE BOTH NARES SCH (09:45)
[2018-07-03] MEDS: FUROSEMIDE 20 MG TABLET PO SCH (09:54)
[2018-07-03] MEDS: ESCITALOPRAM 10 MG TABLET PO SCH (09:54)
[2018-07-03] MEDS: FENOFIBRATE 160 MG TABLET PO SCH (09:54)
[2018-07-03] MEDS: DUTASTERIDE 0.5 MG CAPSULE PO SCH (09:54)
[2018-07-03] MEDS: PANTOPRAZOLE 40 MG TABLET PO SCH (09:55)
[2018-07-03] MEDS: SPIRONOLACTONE 25 MG TABLET PO SCH ×2 (09:55→21:05)
[2018-07-03] MEDS: POTASSIUM CHLORIDE 20 MEQ TABLET PO SCH (09:55)
[2018-07-03] MEDS: MULTIVITAMIN (CENTRUM) TABLET PO SCH (09:55)
[2018-07-03] MEDS: CYANOCOBALAMIN 500 MCG TABLET PO SCH (09:55)
[2018-07-03] MEDS: MEMANTINE 10 MG TABLET PO SCH (09:55)
[2018-07-03] MEDS: DOCUSATE SODIUM 100 MG CAPSULE PO SCH ×2 (09:55→21:05)
[2018-07-03] MEDS: cefTRIAXone 1,000 MG in SYRINGE 1 EACH IV SCH (18:02)
[2018-07-03] MEDS: ATORVASTATIN 40 MG TABLET PO SCH (21:05)
[2018-07-04 05:08] LABS: Basophils # 0.1 10*3/uL (0.0-0.2); Basophils % 0.8 % (0.0-0.8); Eosinophils # 0.7 10*3/uL (0.0-0.87); Eosinophils % 6.9 % (0.00-10.9); Hematocrit 28.2 VOL% (42.0-52.0); Hemoglobin 8.4 GM/DL (14.0-18.0); Immature Granulocytes % 0.8 %; Immature Granulocytes Absolute 0.09 #; Lymphocytes # 1.3 10*3/uL (1.4-4.0); Lymphocytes % 11.6 % (21.2-54.2); Mean Corpuscular HGB Conc 29.8 GM/DL (32-36); Mean Corpuscular Hemoglobin 27 PG (27-34); Mean Corpuscular Volume 91.9 FL (87-102); Mean Platelet Volume 10.6 FL (9.6-12.0); Monocytes # 1.5 10*3/uL (0.11-0.8); Monocytes % 14.1 % (1.7-12.7); Neutrophils # 7.1 10*3/uL (1.4-7.4); Neutrophils % 65.8 % (38.7-73.9); Platelet Count 292 T/CUMM (130-400); Red Blood Count 3.07 MC/CUMM (3.8-5.5); Red Cell Distribution Width 16.9 % (9.3-17.3); White Blood Count 10.7 T/CUMM (4-12)
[2018-07-04 05:13] LABS: Calcium 8.2 MG/DL (8.5-10.1); Osmolality,Calculated 274.7 MOS/KG (273-304); Potassium 4.2 MMOL/L (3.5-5.1)
[2018-07-04] MEDS ORDERED: FAMOTIDINE 20 MG TABLET PO ONE (06:00)
[2018-07-04] MEDS: DOCUSATE SODIUM 100 MG CAPSULE PO SCH ×2 (09:31→21:10)
[2018-07-04] MEDS: DUTASTERIDE 0.5 MG CAPSULE PO SCH (09:31)
[2018-07-04] MEDS: FUROSEMIDE 20 MG TABLET PO SCH (09:31)
[2018-07-04] MEDS: FLUTICASONE 50 MCG NASAL SPRAY 16 GM BOTTLE BOTH NARES SCH (09:31)
[2018-07-04] MEDS: POTASSIUM CHLORIDE 20 MEQ TABLET PO SCH (09:31)
[2018-07-04] MEDS: SPIRONOLACTONE 25 MG TABLET PO SCH ×2 (09:31→21:10)
[2018-07-04] MEDS: MULTIVITAMIN (CENTRUM) TABLET PO SCH (09:31)
[2018-07-04] MEDS: PANTOPRAZOLE 40 MG TABLET PO SCH (09:32)
[2018-07-04] MEDS: CYANOCOBALAMIN 500 MCG TABLET PO SCH (09:32)
[2018-07-04] MEDS: MEMANTINE 10 MG TABLET PO SCH (09:32)
[2018-07-04] MEDS: FENOFIBRATE 160 MG TABLET PO SCH (09:32)
[2018-07-04] MEDS: ESCITALOPRAM 10 MG TABLET PO SCH (09:32)
[2018-07-04] MEDS: DEXTROSE 5% NACL 0.45% 1,000 ML IV SCH (10:12)
[2018-07-04] MEDS ORDERED: NEOMYCIN/POLYMYXIN IRRIG SOLN 1 ML AMP BLADDERIRR ONE (10:48)
[2018-07-04] MEDS ORDERED: DEXAMETHASONE 4 MG/1 ML VIAL ONE (12:23)
[2018-07-04] MEDS ORDERED: SEVOFLURANE 1 UNIT/15 MINUTE INH ONE (12:23)
[2018-07-04] MEDS ORDERED: PHENYLEPHRINE 1 MG/10 ML SYRINGE IV ONE (12:23)
[2018-07-04] MEDS ORDERED: PROPOFOL 200 MG/20 ML VIAL IV ONE (12:23)
[2018-07-04] MEDS ORDERED: ONDANSETRON 4 MG/2 ML VIAL ONE (12:23)
[2018-07-04] MEDS ORDERED: fentaNYL 100 MCG/2 ML VIAL ONE (12:23)
[2018-07-04 15:35] LABS: Hematocrit 29.8 VOL% (42.0-52.0); Hemoglobin 8.9 GM/DL (14.0-18.0)
[2018-07-04] MEDS: cefTRIAXone 1,000 MG in SYRINGE 1 EACH IV SCH (18:35)
[2018-07-04] MEDS: ATORVASTATIN 40 MG TABLET PO SCH (21:10)
[2018-07-05] MEDS: DEXTROSE 5% NACL 0.45% 1,000 ML IV SCH ×2 (05:00→18:24)
[2018-07-05 05:16] LABS: Basophils % 0.1 % (0.0-0.8); Hematocrit 25.4 VOL% (42.0-52.0); Hemoglobin 7.6 GM/DL (14.0-18.0); Immature Granulocytes % 0.6 %; Immature Granulocytes Absolute 0.07 #; Lymphocytes # 0.7 10*3/uL (1.4-4.0); Mean Corpuscular HGB Conc 29.9 GM/DL (32-36); Mean Corpuscular Hemoglobin 27 PG (27-34); Mean Corpuscular Volume 91.7 FL (87-102); Monocytes # 1.3 10*3/uL (0.11-0.8); Monocytes % 11.2 % (1.7-12.7); Neutrophils # 9.4 10*3/uL (1.4-7.4); Neutrophils % 82.1 % (38.7-73.9); Platelet Count 305 T/CUMM (130-400); Red Blood Count 2.77 MC/CUMM (3.8-5.5); Red Cell Distribution Width 16.5 % (9.3-17.3); White Blood Count 11.4 T/CUMM (4-12)
[2018-07-05 05:50] LABS: Albumin 2.5 G/DL (3.4-5.0); Bilirubin,Total 0.4 MG/DL (0.2-1.0); Osmolality,Calculated 277.7 MOS/KG (273-304); Potassium 4.6 MMOL/L (3.5-5.1); Total Protein 5.7 G/DL (6.4-8.3)
[2018-07-05] MEDS: ESCITALOPRAM 10 MG TABLET PO SCH (09:31)
[2018-07-05] MEDS: MEMANTINE 10 MG TABLET PO SCH (09:31)
[2018-07-05] MEDS: PANTOPRAZOLE 40 MG TABLET PO SCH (09:32)
[2018-07-05] MEDS: FUROSEMIDE 20 MG TABLET PO SCH (09:32)
[2018-07-05] MEDS: DOCUSATE SODIUM 100 MG CAPSULE PO SCH ×2 (09:32→21:25)
[2018-07-05] MEDS: CYANOCOBALAMIN 500 MCG TABLET PO SCH (09:32)
[2018-07-05] MEDS: MULTIVITAMIN (CENTRUM) TABLET PO SCH (09:33)
[2018-07-05] MEDS: SPIRONOLACTONE 25 MG TABLET PO SCH ×2 (09:33→21:25)
[2018-07-05] MEDS: POTASSIUM CHLORIDE 20 MEQ TABLET PO SCH (09:33)
[2018-07-05] MEDS: FENOFIBRATE 160 MG TABLET PO SCH (09:33)
[2018-07-05] MEDS: DUTASTERIDE 0.5 MG CAPSULE PO SCH (09:33)
[2018-07-05 11:52] LABS: INR 1.1; PT Patient Result 11.9 SECS; Partial Thromboplastin Time 24.5 SECS (0-40)
[2018-07-05] MEDS: FLUTICASONE 50 MCG NASAL SPRAY 16 GM BOTTLE BOTH NARES SCH (13:49)
[2018-07-05] MEDS: cefTRIAXone 1,000 MG in SYRINGE 1 EACH IV SCH (21:23)
[2018-07-05] MEDS: ATORVASTATIN 40 MG TABLET PO SCH (21:25)
[2018-07-06] MEDS: DEXTROSE 5% NACL 0.45% 1,000 ML IV SCH ×2 (08:13→22:09)
[2018-07-06] MEDS: FENOFIBRATE 160 MG TABLET PO SCH (08:40)
[2018-07-06] MEDS: SPIRONOLACTONE 25 MG TABLET PO SCH ×2 (08:41→21:15)
[2018-07-06] MEDS: DOCUSATE SODIUM 100 MG CAPSULE PO SCH ×2 (08:41→21:15)
[2018-07-06] MEDS: ESCITALOPRAM 10 MG TABLET PO SCH (08:41)
[2018-07-06] MEDS: FUROSEMIDE 20 MG TABLET PO SCH (08:41)
[2018-07-06] MEDS: PANTOPRAZOLE 40 MG TABLET PO SCH (08:42)
[2018-07-06] MEDS: CYANOCOBALAMIN 500 MCG TABLET PO SCH (08:42)
[2018-07-06] MEDS: DUTASTERIDE 0.5 MG CAPSULE PO SCH (08:42)
[2018-07-06] MEDS: POTASSIUM CHLORIDE 20 MEQ TABLET PO SCH (08:42)
[2018-07-06] MEDS: MEMANTINE 10 MG TABLET PO SCH (08:42)
[2018-07-06] MEDS: FLUTICASONE 50 MCG NASAL SPRAY 16 GM BOTTLE BOTH NARES SCH (08:44)
[2018-07-06] MEDS: ALBUTEROL 0.63 MG/3 ML NEB RESP TX PRN (10:59)
[2018-07-06] MEDS: OXYBUTYNIN XL 10 MG TABLET PO SCH (13:13)
[2018-07-06] MEDS: cefTRIAXone 1,000 MG in SYRINGE 1 EACH IV SCH (21:14)
[2018-07-06] MEDS: ATORVASTATIN 40 MG TABLET PO SCH (21:15)
[2018-07-07 03:40] LABS: Basophils # 0.1 10*3/uL (0.0-0.2); Basophils % 0.8 % (0.0-0.8); Eosinophils # 0.5 10*3/uL (0.0-0.87); Eosinophils % 5.4 % (0.00-10.9); Hematocrit 26.3 VOL% (42.0-52.0); Hemoglobin 7.7 GM/DL (14.0-18.0); Immature Granulocytes % 0.6 %; Immature Granulocytes Absolute 0.06 #; Lymphocytes # 1.1 10*3/uL (1.4-4.0); Lymphocytes % 11.8 % (21.2-54.2); Mean Corpuscular HGB Conc 29.3 GM/DL (32-36); Mean Corpuscular Hemoglobin 27 PG (27-34); Mean Corpuscular Volume 92.6 FL (87-102); Mean Platelet Volume 10.4 FL (9.6-12.0); Monocytes # 1.4 10*3/uL (0.11-0.8); Neutrophils # 6.2 10*3/uL (1.4-7.4); Neutrophils % 66.4 % (38.7-73.9); Platelet Count 322 T/CUMM (130-400); Red Blood Count 2.84 MC/CUMM (3.8-5.5); Red Cell Distribution Width 16.2 % (9.3-17.3); White Blood Count 9.3 T/CUMM (4-12)
[2018-07-07] MEDS: DEXTROSE 5% NACL 0.45% 1,000 ML IV SCH ×2 (09:11→22:31)
[2018-07-07] MEDS: SPIRONOLACTONE 25 MG TABLET PO SCH ×2 (09:17→21:31)
[2018-07-07] MEDS: ESCITALOPRAM 10 MG TABLET PO SCH (09:17)
[2018-07-07] MEDS: PANTOPRAZOLE 40 MG TABLET PO SCH (09:17)
[2018-07-07] MEDS: MEMANTINE 10 MG TABLET PO SCH (09:17)
[2018-07-07] MEDS: DUTASTERIDE 0.5 MG CAPSULE PO SCH (09:17)
[2018-07-07] MEDS: OXYBUTYNIN XL 10 MG TABLET PO SCH (09:17)
[2018-07-07] MEDS: DOCUSATE SODIUM 100 MG CAPSULE PO SCH ×2 (09:17→21:31)
[2018-07-07] MEDS: FENOFIBRATE 160 MG TABLET PO SCH (09:17)
[2018-07-07] MEDS: FUROSEMIDE 20 MG TABLET PO SCH (09:17)
[2018-07-07] MEDS: CYANOCOBALAMIN 500 MCG TABLET PO SCH (09:17)
[2018-07-07] MEDS: POTASSIUM CHLORIDE 20 MEQ TABLET PO SCH (09:17)
[2018-07-07] MEDS: FLUTICASONE 50 MCG NASAL SPRAY 16 GM BOTTLE BOTH NARES SCH (09:18)
[2018-07-07] MEDS: ACETAMINOPHEN 325 MG TABLET PO PRN (21:30)
[2018-07-07] MEDS: ATORVASTATIN 40 MG TABLET PO SCH (21:31)
[2018-07-08] MEDS: DOCUSATE SODIUM 100 MG CAPSULE PO SCH ×2 (08:06→20:44)
[2018-07-08] MEDS: ESCITALOPRAM 10 MG TABLET PO SCH (08:06)
[2018-07-08] MEDS: PANTOPRAZOLE 40 MG TABLET PO SCH (08:07)
[2018-07-08] MEDS: FUROSEMIDE 20 MG TABLET PO SCH (08:07)
[2018-07-08] MEDS: OXYBUTYNIN XL 10 MG TABLET PO SCH (08:07)
[2018-07-08] MEDS: MEMANTINE 10 MG TABLET PO SCH (08:07)
[2018-07-08] MEDS: DUTASTERIDE 0.5 MG CAPSULE PO SCH (08:07)
[2018-07-08] MEDS: SPIRONOLACTONE 25 MG TABLET PO SCH ×2 (08:07→20:44)
[2018-07-08] MEDS: POTASSIUM CHLORIDE 20 MEQ TABLET PO SCH (08:07)
[2018-07-08] MEDS: CYANOCOBALAMIN 500 MCG TABLET PO SCH (08:07)
[2018-07-08] MEDS: FLUTICASONE 50 MCG NASAL SPRAY 16 GM BOTTLE BOTH NARES SCH (08:09)
[2018-07-08] MEDS: FENOFIBRATE 160 MG TABLET PO SCH (08:12)
[2018-07-08] MEDS: DEXTROSE 5% NACL 0.45% 1,000 ML IV SCH (10:39)
[2018-07-08 11:34] LABS: Hematocrit 26.5 VOL% (42.0-52.0); Hemoglobin 7.8 GM/DL (14.0-18.0)
[2018-07-08] MEDS ORDERED: SODIUM CHLORIDE 0.9% 1,000 ML IV PRN (12:35)
[2018-07-08] MEDS ORDERED: FUROSEMIDE 40 MG/4 ML VIAL IV ONE (12:36)
[2018-07-08] MEDS: ATORVASTATIN 40 MG TABLET PO SCH (20:44)
[2018-07-08 22:28] LABS: Hematocrit 33.6 VOL% (42.0-52.0)
[2018-07-08 22:32] LABS: Hemoglobin 10.3 GM/DL (14.0-18.0)
[2018-07-09] MEDS: DEXTROSE 5% NACL 0.45% 1,000 ML IV SCH (00:46)
[2018-07-09 05:05] LABS: Basophils # 0.1 10*3/uL (0.0-0.2); Eosinophils # 0.6 10*3/uL (0.0-0.87); Eosinophils % 5.6 % (0.00-10.9); Hemoglobin 10.2 GM/DL (14.0-18.0); Immature Granulocytes % 0.9 %; Immature Granulocytes Absolute 0.09 #; Lymphocytes % 10.6 % (21.2-54.2); Mean Corpuscular HGB Conc 30.9 GM/DL (32-36); Mean Corpuscular Hemoglobin 28 PG (27-34); Mean Corpuscular Volume 88.9 FL (87-102); Mean Platelet Volume 10.6 FL (9.6-12.0); Monocytes # 1.4 10*3/uL (0.11-0.8); Monocytes % 14.1 % (1.7-12.7); Neutrophils # 6.6 10*3/uL (1.4-7.4); Neutrophils % 67.8 % (38.7-73.9); Platelet Count 380 T/CUMM (130-400); Red Blood Count 3.71 MC/CUMM (3.8-5.5); Red Cell Distribution Width 16.5 % (9.3-17.3); White Blood Count 9.8 T/CUMM (4-12)
[2018-07-09 05:27] LABS: Calcium 8.3 MG/DL (8.5-10.1); Osmolality,Calculated 278.5 MOS/KG (273-304); Potassium 3.8 MMOL/L (3.5-5.1)
[2018-07-09] MEDS: FENOFIBRATE 160 MG TABLET PO SCH (09:39)
[2018-07-09] MEDS: OXYBUTYNIN XL 10 MG TABLET PO SCH (09:39)
[2018-07-09] MEDS: POTASSIUM CHLORIDE 20 MEQ TABLET PO SCH (09:39)
[2018-07-09] MEDS: MEMANTINE 10 MG TABLET PO SCH (09:39)
[2018-07-09] MEDS: DUTASTERIDE 0.5 MG CAPSULE PO SCH (09:39)
[2018-07-09] MEDS: ESCITALOPRAM 10 MG TABLET PO SCH (09:39)
[2018-07-09] MEDS: FUROSEMIDE 20 MG TABLET PO SCH (09:40)
[2018-07-09] MEDS: CYANOCOBALAMIN 500 MCG TABLET PO SCH (09:43)
[2018-07-09] MEDS: PANTOPRAZOLE 40 MG TABLET PO SCH (09:43)
[2018-07-09] MEDS: SPIRONOLACTONE 25 MG TABLET PO SCH (09:43)
[2018-07-09] MEDS: DOCUSATE SODIUM 100 MG CAPSULE PO SCH (09:43)
[2018-07-09] MEDS: FLUTICASONE 50 MCG NASAL SPRAY 16 GM BOTTLE BOTH NARES SCH (09:47)
[2018-07-09 12:00] VITALS: BP 104/43
== END 2018-07-09 12:50 | DRG 982 ==
LOC: EDBD → EDUNIT# → N.EDINP 08:39 → N.ED 08:39 → INTOOBSV 11:08 → OBSVTOIN 11:08 → N.5E 15:06 → SUATTDRO 07-01 09:28
PROVIDERS: ADMIT Internal Medicine; ATTEND Internal Medicine